=== PATIENT | female | born 1975 | race Caucasian/White ===

== ENCOUNTER 2017-08-14 06:38 | Day surgery (SDC) | payer SELFPAY ==
[2017-08-13 10:32] VITALS: BMI 27.4
[2017-08-14] MEDS ORDERED: EPINEPHrine 1:1,000 1 MG/1 ML - 30ML VIAL (INJECTION) ONE (07:48)
[2017-08-14] MEDS ORDERED: LIDOCAINE HCL 1%, 10 MG/ML (20ML VIAL) ONE (07:48)
[2017-08-14] MEDS ORDERED: BACITRACIN 15 GM TUBE TOPICAL OINTMENT ONE (07:48)
[2017-08-14] MEDS ORDERED: MIDAZOLAM HCL 2 MG/2 ML SINGLE DOSE VIAL ONE (08:08)
[2017-08-14] MEDS ORDERED: fentaNYL CITRATE 250 MCG/5 ML VIAL ONE (08:08)
[2017-08-14] MEDS ORDERED: HEPARIN NA (PORCINE) 5,000 UNITS/ML 1ML VIAL ONE (09:10)
[2017-08-14] MEDS ORDERED: diphenhydrAMINE HCL 25 MG CAPSULE (FP) PO PRN (09:21)
[2017-08-14] MEDS ORDERED: HEPARIN NA (PORCINE) 5,000 UNITS/ML 1ML VIAL SQ ONE (09:21)
[2017-08-14] MEDS ORDERED: diphenhydrAMINE HCL 25 MG CAPSULE (FP) PO ONE (09:30)
[2017-08-14] MEDS ORDERED: HYDROmorphone HCL/PF 1 MG/ML VIAL (FOR PYXIS CHARGING ONLY) ONE (10:26)
[2017-08-14] MEDS ORDERED: DESFLURANE GAS 240 ML BOTTLE IH ONE (12:57)
[2017-08-14] MEDS ORDERED: ACETAMINOPHEN INJECTION 100 ML IVPB ONE (13:54)
[2017-08-14] MEDS ORDERED: ceFAZolin SODIUM 1 GM VIAL ONE (14:35)
[2017-08-14] MEDS ORDERED: ONDANSETRON 4 MG/2 ML VIAL IVPUSH PRN (15:38)
[2017-08-14] MEDS ORDERED: PROMETHAZINE HCL 25 MG/1 ML VIAL IVPUSH PRN (15:38)
[2017-08-14] MEDS ORDERED: LACTATED RINGERS SOLUTION 1,000 ML IV SCH (15:45)
[2017-08-14] MEDS ORDERED: oxyCODONE HCL 5 MG TABLET ONE (16:52)
[2017-08-14] MEDS ORDERED: oxyCODONE HCL 5 MG TABLET PO PRN (16:58)
[2017-08-14 18:23] VITALS: TEMP 98
[2017-08-14 18:34] VITALS: BP 144/73; PULSE 97
[2017-08-14] MEDS ORDERED: MULTIVITAMINS (DAILY MVI) TABLET (FP) PO SCH (22:00)
[2017-08-14] MEDS ORDERED: FERROUS SO4 325 MG TABLET (FP) PO SCH (22:00)
== END 2017-08-14 18:05 | disposition home or self-care (01) ==
LOC: FASU 06:38
PROVIDERS: ATTEND Surgery
PROC: 0J073ZZ Alteration of Back Subcutaneous Tissue and Fascia, Percutaneous Approach (ICD-10-PCS; 2017-08-14)
PROC: 0J0H3ZZ Alteration of Left Lower Arm Subcutaneous Tissue and Fascia, Percutaneous Approach (ICD-10-PCS; 2017-08-14)
PROC: 0J0D3ZZ Alteration of Right Upper Arm Subcutaneous Tissue and Fascia, Percutaneous Approach (ICD-10-PCS; 2017-08-14)
PROC: 0J0F3ZZ Alteration of Left Upper Arm Subcutaneous Tissue and Fascia, Percutaneous Approach (ICD-10-PCS; 2017-08-14)
PROC: 0J0G3ZZ Alteration of Right Lower Arm Subcutaneous Tissue and Fascia, Percutaneous Approach (ICD-10-PCS; 2017-08-14)
PROC: 0J083ZZ Alteration of Abdomen Subcutaneous Tissue and Fascia, Percutaneous Approach (ICD-10-PCS; principal; 2017-08-14 09:50)
PROC: 0J063ZZ Alteration of Chest Subcutaneous Tissue and Fascia, Percutaneous Approach (ICD-10-PCS; 2017-08-14 09:50)
DX: Z41.1 Encounter for cosmetic surgery (principal)
CPT/HCPCS: 84703; 94760; J1644

== ENCOUNTER 2023-01-28 04:28 | Inpatient (IN) | payer BC, OTHER ==
[2023-01-25 09:35] VITALS: BMI 29.3
[2023-01-28] MEDS ORDERED: PHENAZOPYRIDINE HCL 100 MG TABLET (FP) PO ONE (06:30)
[2023-01-28] MEDS ORDERED: ACETAMINOPHEN 1000 MG/100 ML BAG IVPB ONE (06:30)
[2023-01-28] MEDS ORDERED: GABAPENTIN 300 MG CAPSULE PO ONE (06:30)
[2023-01-28] MEDS ORDERED: CEFAZOLIN 2 GM in DEXTROSE 5%-WATER - 100 ML IVPB ONE (06:30)
[2023-01-28] MEDS ORDERED: TRANEXAMIC ACID 1000 MG/10 ML VIAL IVPUSH ONE (06:30)
[2023-01-28] MEDS ORDERED: ceFAZolin SODIUM 1 GM VIAL ONE (06:53)
[2023-01-28] MEDS ORDERED: SUCCINYLCHOLINE CHLORIDE 200 MG/10 ML SYRINGE ONE (06:59)
[2023-01-28] MEDS ORDERED: PROPOFOL 20 ML ONE (06:59)
[2023-01-28] MEDS ORDERED: ROCURONIUM BROMIDE 50 MG/5 ML SYRINGE ONE (06:59)
[2023-01-28] MEDS ORDERED: MIDAZOLAM HCL 2 MG/2 ML SINGLE DOSE VIAL ONE (07:00)
[2023-01-28] MEDS ORDERED: CEFAZOLIN 2 GM in DEXTROSE 5%-WATER - 100 ML IVPB SCH (07:00)
[2023-01-28] MEDS ORDERED: BUPIVACAINE HCL/PF 0.5% (5MG/ML) 10 ML VIAL ONE (07:05)
[2023-01-28] MEDS ORDERED: BUPIVACAINE LIPOSOME/PF (EXPAREL) 266 MG/20 ML VIAL ONE (07:05)
[2023-01-28] MEDS ORDERED: ceFAZolin SODIUM 1 GM VIAL IVPB ONE (08:01)
[2023-01-28] MEDS ORDERED: HYDROmorphone HCl 2 MG/ML VIAL ONE (08:37)
[2023-01-28] MEDS ORDERED: TRANEXAMIC ACID 1000 MG/10 ML VIAL ONE ×2 (08:41→08:42)
[2023-01-28] MEDS ORDERED: SUGAMMADEX SODIUM 200 MG/2 ML VIAL ONE (08:58)
[2023-01-28] MEDS ORDERED: oxyCODONE HCL 5 MG TABLET PO PRN ×3 (09:55→10:34)
[2023-01-28] MEDS ORDERED: ONDANSETRON 4 MG/2 ML VIAL IVPUSH PRN ×3 (09:55→10:34)
[2023-01-28] MEDS ORDERED: LACTATED RINGERS SOLUTION 1,000 ML IV SCH (10:00)
[2023-01-28] MEDS ORDERED: FERROUS SO4 325 MG TABLET (FP) PO PRN (10:27)
[2023-01-28] MEDS ORDERED: BISACODYL 5 MG TABLET.DR (FP) PO PRN (10:34)
[2023-01-28] MEDS ORDERED: DOCUSATE SODIUM 100 MG CAPSULE (FP) PO PRN (10:34)
[2023-01-28] MEDS: ACETAMINOPHEN 1000 MG/100 ML BAG IVPB SCH ×2 (15:35→20:21)
[2023-01-28] MEDS: CEFAZOLIN 1 GM in DEXTROSE 5%-WATER - 50 ML IVPB SCH ×2 (17:23→17:24)
[2023-01-28] MEDS: IBUPROFEN 800 MG/8 ML IJ IVPB SCH (18:15)
[2023-01-28] MEDS: SODIUM CHLORIDE 1,000 ML IV SCH (18:20)
[2023-01-28] MEDS: SIMETHICONE 80 MG TAB.CHEW (FP) PO PRN (20:18)
[2023-01-28] MEDS: MONTELUKAST NA 10 MG TABLET PO SCH (22:32)
[2023-01-29] MEDS: IBUPROFEN 800 MG/8 ML IJ IVPB SCH ×2 (00:26→09:15)
[2023-01-29] MEDS: CEFAZOLIN 1 GM in DEXTROSE 5%-WATER - 50 ML IVPB SCH ×3 (01:46→17:22)
[2023-01-29] MEDS: ACETAMINOPHEN 1000 MG/100 ML BAG IVPB SCH ×2 (02:27→09:53)
[2023-01-29] MEDS: SODIUM CHLORIDE 1,000 ML IV SCH ×2 (03:00→11:28)
[2023-01-29 08:36] LABS: HEMATOCRIT 27.2 % (32.4-45.2); HEMOGLOBIN 8.9 GM/dL (10.7-15.3); MCH 23.8 pg (25.7-33.7); MCHC 32.8 g/dl (32.0-36.0); MEAN CELL VOLUME 72.4 fl (80-96); MEAN PLT VOLUME 7.9 fl (7.5-11.1); PLATELET COUNT 353 10^3/uL (134-434); RBC 3.76 M/mm3 (3.60-5.2); RDW 19.6 % (11.6-15.6)
[2023-01-29 08:52] LABS: POTASSIUM 3.9 mmol/L (3.5-5.1)
[2023-01-29 08:54] LABS: BLOOD UREA NITROGEN 5.8 mg/dL (7-18); CALCIUM 8.3 mg/dL (8.5-10.1)
[2023-01-29 08:58] LABS: CREATININE 0.8 mg/dL (0.55-1.3)
[2023-01-29] MEDS: ENOXAPARIN NA (PORCINE) 40 MG/0.4 ML DISP.SYRIN SQ SCH (09:27)
[2023-01-29] MEDS ORDERED: B6 PO SCH (10:00)
[2023-01-29] MEDS ORDERED: COFFEE PO SCH (10:00)
[2023-01-29] MEDS ORDERED: FOLIC PO SCH (10:00)
[2023-01-29] MEDS ORDERED: B12 PO SCH (10:00)
[2023-01-29] MEDS ORDERED: [UNRECOGNIZED DRUG - OTHER] PO SCH (10:00)
[2023-01-29] MEDS ORDERED: PATIENT'S OWN MEDICATION (NON-FORMULARY) (Fexofenadine/Pseudoephedrine [Allegra-D 24 Hour PO SCH (10:00)
[2023-01-29] MEDS: ACETAMINOPHEN 500 MG TABLET (FP) PO SCH ×2 (14:41→20:53)
[2023-01-29] MEDS: IBUPROFEN 400 MG TABLET (FP) PO SCH (16:47)
[2023-01-29 18:43] VITALS: RESP 18
[2023-01-29] MEDS: SIMETHICONE 80 MG TAB.CHEW (FP) PO PRN (20:53)
[2023-01-29] MEDS: MONTELUKAST NA 10 MG TABLET PO SCH (21:53)
[2023-01-30] MEDS: IBUPROFEN 400 MG TABLET (FP) PO SCH ×2 (01:11→09:08)
[2023-01-30] MEDS: CEFAZOLIN 1 GM in DEXTROSE 5%-WATER - 50 ML IVPB SCH (02:05)
[2023-01-30] MEDS: ACETAMINOPHEN 500 MG TABLET (FP) PO SCH (06:11)
[2023-01-30 08:18] LABS: EOS % 2.4 % (0-4.5); HEMATOCRIT 22.9 % (32.4-45.2); HEMOGLOBIN 7.7 GM/dL (10.7-15.3); LYMPH % 17.8 % (8-40); MCH 24.2 pg (25.7-33.7); MCHC 33.5 g/dl (32.0-36.0); MEAN CELL VOLUME 72.4 fl (80-96); MONO % 5.2 % (3.8-10.2); NEUT % 73.6 % (42.8-82.8); PLATELET COUNT 319 10^3/uL (134-434); RBC 3.16 M/mm3 (3.60-5.2); RDW 19.9 % (11.6-15.6); WHITE BLOOD COUNT 12.3 K/mm3 (4.0-10.0)
[2023-01-30] MEDS: ENOXAPARIN NA (PORCINE) 40 MG/0.4 ML DISP.SYRIN SQ SCH (09:10)
[2023-01-30] MEDS: SIMETHICONE 80 MG TAB.CHEW (FP) PO PRN (09:10)
[2023-01-30 09:22] VITALS: BP 111/71; PULSE 83; TEMP 99.1
== END 2023-01-30 10:00 | disposition home or self-care (01) | DRG 743 ==
LOC: J2C 04:28 → J3W 12:25
PROVIDERS: ADMIT Obstetrics & Gynecology; ATTEND Obstetrics & Gynecology
PROC: 0UT70ZZ Resection of Bilateral Fallopian Tubes, Open Approach (ICD-10-PCS; 2023-01-28)
PROC: 0UB20ZZ Excision of Bilateral Ovaries, Open Approach (ICD-10-PCS; 2023-01-28)
PROC: 30233N1 Transfusion of Nonautologous Red Blood Cells into Peripheral Vein, Percutaneous Approach (ICD-10-PCS; 2023-01-28)
PROC: 0UT90ZZ Resection of Uterus, Open Approach (ICD-10-PCS; principal; 2023-01-28 07:30)
DX: D25.1 Intramural leiomyoma of uterus (principal); N92.0 Excessive and frequent menstruation with regular cycle; N84.0 Polyp of corpus uteri; N83.12 Corpus luteum cyst of left ovary; N83.11 Corpus luteum cyst of right ovary; D64.9 Anemia, unspecified
CPT/HCPCS: 36415; 36430; 80048; 85025; 85027; 86850; 86900; 86901; 86922; 87635; 88302-TC; 88305-TC; 88307-TC; 94010; 94760; P9058